=== PATIENT | female | born 1955 | race Caucasian/White ===

== ENCOUNTER 2019-03-05 18:06 | Emergency (ER) | payer OTHER ==
[~2019-03-05] VITALS: Ht 152.4 cm; Wt 116.6 kg
[2019-03-05 18:19] VITALS: Ht 152.4 cm; Wt 116.6 kg
[2019-03-05 21:23] VITALS: BP 152/83
== END 2019-03-05 21:23 | disposition home or self-care (01) ==
LOC: ED 18:06
DX: S83.91XA Sprain of unspecified site of right knee, initial encounter (principal); I10 Essential (primary) hypertension; E11.9 Type 2 diabetes mellitus without complications; K21.9 Gastro-esophageal reflux disease without esophagitis; Z90.710 Acquired absence of both cervix and uterus; X50.1XXA Overexertion from prolonged static or awkward postures, initial encounter; Y93.89 Activity, other specified; Y92.89 Other specified places as the place of occurrence of the external cause; Y99.8 Other external cause status
CPT/HCPCS: J7030

== ENCOUNTER 2020-04-11 11:33 | Emergency (ER) | payer OTHER ==
[~2020-04-11] VITALS: Ht 152.4 cm; Wt 123.8 kg
[2020-04-11 11:40] VITALS: Ht 152.4 cm; Wt 123.8 kg
[2020-04-11 12:44] VITALS: BP 172/82
== END 2020-04-11 12:44 | disposition home or self-care (01) ==
LOC: ED 11:33
DX: M79.604 Pain in right leg (principal); I10 Essential (primary) hypertension; E11.9 Type 2 diabetes mellitus without complications; K21.9 Gastro-esophageal reflux disease without esophagitis; E78.00 Pure hypercholesterolemia, unspecified; Z90.710 Acquired absence of both cervix and uterus; Z98.890 Other specified postprocedural states
CPT/HCPCS: Q0092